=== PATIENT | male | born 1985 | race African-American/Black ===

== ENCOUNTER 2018-11-24 21:56 | Emergency (ER) | payer SELFPAY ==
[2018-11-24] MEDS ORDERED: Benzocaine 20% Topical Spray UD MUCMEM ONE (22:44)
[2018-11-24] MEDS ORDERED: Lidocaine 2% Viscous Solution 15 ML Cup PO ONE (22:44)
[2018-11-24] MEDS ORDERED: Ketorolac 60 MG/2 ML SDV IM ONE (22:52)
--- NOTE | 2018-11-24 22:59 | EDM.PDOC ---
ED HPI GENERAL MEDICAL PROBLEM - General Chief Complaint: ENT Problem Stated Complaint: TOOTH PAIN, LEFT SIDE. Time Seen by Provider: 11/24/18 22:42 - History of Present Illness INITIAL COMMENTS - FREE TEXT/NARRATIVE: HISTORY AND PHYSICAL: History of present illness: The patient is a 32-year-old male who presents with complaints of tooth pain at an ongoing for 2 days for which she was [facility] earlier today. He said he was given amoxicillin which she started taking and he has been using Tylenol and ibuprofen but has not taken anything since 6:00 this morning he is here for intractable pain. He did place some dental paste in the area because there is a cavity. He says the pain is very bad. When nursing went out to get the patient from triage he had laid on the floor and when he was brought to the room he was laying in the prone position and would not turn over this Morning and would not respond to my staff. Review of systems: As per history of present illness and below otherwise all systems reviewed and negative. Past medical history: As per history of present illness and as reviewed below otherwise noncontributory. Surgical history: As per history of present illness and as reviewed below otherwise noncontributory. Social history: No reported history of drug or alcohol abuse. Family history: As per history of present illness and as reviewed below otherwise noncontributory. Physical exam: General: Well-developed well-nourished overweight man who is nontoxic and on my initial entry into the room is in the prone position on the wrong side of the bed. He is rolling around and will not respond to my requested that he will roll over and I have told him that in order to evaluate him he needs to be in the proper position and that he needs to do that for me. He moves easily without assistance and vital signs are noted by me. He eventually moved into the proper position and allowed me to evaluate him. HEENT: Atraumatic, normocephalic, pupils reactive, negative for conjunctival pallor or scleral icterus, mucous membranes moist, throat clear, neck supple, nontender, trachea midline. There is no gross facial swelling appreciated on the left and there is no cervical adenopathy. At tooth #11 laterally there is some dental paste seen an obvious dental Janine and tenderness with tap of the tooth but there is no gum swelling appreciated. There is diffuse dental gingivitis Lungs: Clear to auscultation, breath sounds equal bilaterally, chest nontender. Heart: S1S2, regular rate and rhythm no overt murmurs Abdomen: Soft, nondistended, nontender. Negative for masses or hepatosplenomegaly. NABS Pelvis: Deferred Genitourinary: Deferred. Rectal: Deferred. Extremities: Atraumatic, full range of motion without defects. Neurovascular unremarkable. Neuro: Awake, alert, Motor and sensory unremarkable throughout. Exam nonfocal. Diagnostics: [] Therapeutics: Toradol IM [place] 1 dose, dental balls The patient has been very difficult with nursing and would not get into a wheelchair and would not get into the bed further testimony and it required several of them to get him into the bed and he would not get an proper position until I demanded that he do so in order for me to properly evaluate him. He started telling me that he didn't appreciate the way he was being treated and that he was going to miranda everybody from our practice. I redirected him saying that we are trying to evaluate him to help him and that until we can do so we cannot treat him properly. He still seems very agitated and asked for his cell phone it is unclear whether or not he did any recording of our conversation. Once I was able to start my evaluation and focus him on the problem at hand he seemed more cooperative. He is aware that he needs to see a dentist for formal and definitive care and that we do not do dental x-rays or dental care here. I will give him dental balls a shot of Toradol and one [place] as well as referrals for dentistry. He is aware that he needs to take Tylenol and ibuprofen around- the-clock and just not sporadically as his last dose was at 6 AM. I told him that after this care plan he will be discharged home. Impression: Dental pain and carries Definitive disposition and diagnosis as appropriate pending reevaluation and review of above. dental area Pain Score (Numeric/FACES): 10 - Related Data Allergies Allergy/AdvReac Type Severity Reaction Status Date / Time No Known Allergies Allergy Verified 11/24/18 22:03 Home Meds: Home Meds Amoxicillin 500 mg PO BID 11/24/18 [History] Pt Reports That He Takes Medications 11/24/18 [History] Past Medical History HEENT History: Reports: None Cardiovascular History: Reports: None Respiratory History: Reports: None Gastrointestinal History: Reports: None Genitourinary History: Reports: None Musculoskeletal History: Reports: None Neurological History: Reports: None Psychiatric History: Reports: Depression Endocrine/Metabolic History: Reports: None Hematologic History: Reports: None Immunologic History: Reports: None Oncologic (Cancer) History: Reports: None Dermatologic History: Reports: None - Infectious Disease History Infectious Disease History: Reports: None - Past Surgical History Head Surgeries/Procedures: Reports: None Social & Family History - Family History Family Medical History: Noncontributory - Tobacco Use Smoking Status *Q: Former Smoker Used Tobacco, but Quit: No - Caffeine Use Caffeine Use: Reports: Energy Drinks - Recreational Drug Use Recreational Drug Use: No ED ROS GENERAL - Review of Systems Review Of Systems: ROS reveals no pertinent complaints other than HPI. ED EXAM, GENERAL - Physical Exam Exam: See Below (See dictation) Course - Vital Signs Last Recorded V/S: Last Vital Signs Temp 36.6 C 11/24/18 22:05 Pulse 108 H 11/24/18 22:05 Resp 18 11/24/18 22:05 BP 182/117 H 11/24/18 22:05 Pulse Ox 96 11/24/18 22:05 - Orders/Labs/Meds Meds: Medications Discontinued Medications Generic Name Dose Route Start Last Admin Trade Name Yossi PRPoly Reason Stop Dose Admin Benzocaine 2 each 11/24/18 22:44 Hurricaine One 20% MUCMEM 11/24/18 22:45 ONETIME ONE Ketorolac Tromethamine 60 mg 11/24/18 22:52 Toradol IM 11/24/18 22:53 ONETIME ONE Lidocaine HCl 15 ml 11/24/18 22:44 Xylocaine 2% Viscous PO 11/24/18 22:45 ONETIME ONE Departure - Departure Time of Disposition: 23:00 Disposition: Home, Self-Care 01 Condition: Good Clinical Impression: Pain due to dental caries - Discharge Information Referrals: PCP,None [Primary Care Provider] - Forms: ED Department Discharge Additional Instructions: The following information is given to patients seen in the emergency department who are being discharged to home. This information is to outline your options for follow-up care. We provide all patients seen in our emergency department with a follow-up referral. The need for follow-up, as well as the timing and circumstances, are variable depending upon the specifics of your emergency department visit. If you don't have a primary care physician on staff, we will provide you with a referral. We always advise you to contact your personal physician following an emergency department visit to inform them of the circumstance of the visit and for follow-up with them and/or the need for any referrals to a consulting specialist. The emergency department will also refer you to a specialist when appropriate. This referral assures that you have the opportunity for followup care with a specialist. All of these measure are taken in an effort to provide you with optimal care, which includes your followup. Under all circumstances we always encourage you to contact your private physician who remains a resource for coordinating your care. When calling for followup care, please make the office aware that this follow-up is from your recent emergency room visit. If for any reason you are refused follow-up, please contact the [facility] emergency department at and ask to speak to the emergency department charge nurse. [facility] Primary care- [place] [address] [facility] as [facility] will prevent infection and use dental balls you have been given here in the ED as shown and as needed. Use [id number] Tylenol 1000 mg every 6-8 hours and Motrin 800 mg every 8 hours for pain management. Please do not take extra medication as this will not help and may only harm you. Use ice to face for any swelling. Please connect with one of our local dentist for definitive care and treatment as we discussed and return to ER as needed and as discussed
[2018-11-24] MEDS ORDERED: Acetaminophen/HYDROcodone 325-7.5 MG Tab PO ONE (23:23)
== END 2018-11-24 23:40 | disposition home or self-care (01) ==
LOC: MW.ED 21:56
DX: K02.9 Dental caries, unspecified (principal); Z87.891 Personal history of nicotine dependence
CPT/HCPCS: 96372; 99283; A9270; J1885